=== PATIENT | male | born 1955 | race Caucasian/White ===

== ENCOUNTER 2022-01-12 06:19 | Emergency (ER) | payer MEDICARE, BC | END 2022-01-12 07:10 | disposition home or self-care (01) | LOC: ERS 06:19 | DX: G50.0 Trigeminal neuralgia (principal) | CPT/HCPCS: 99282 ==

== ENCOUNTER 2022-02-17 11:53 | Inpatient (IN) | payer MEDICARE, BC ==
[2022-02-17] MEDS ORDERED: Ketorolac Tromethamine 30 MG/ML VIAL ONE (12:25)
[2022-02-17] MEDS ORDERED: Ondansetron PF 4 MG/2 ML Vial ONE (12:25)
[2022-02-17] MEDS ORDERED: Morphine 4 MG/ML VIAL ONE (12:25)
[2022-02-17 12:44] LABS: #Lymphocytes 0.8 thou/uL (1.20-3.40); #Monocytes 0.4 thou/uL (0.11-0.59); #Neutrophils 6.3 thou/uL (1.40-6.50); %Eosinophils 0.4 % (0.0-10.0); %Lymphocytes 10.2 % (21.0-51.0); %Monocytes 4.9 % (0.0-10.0); %Neutrophils 84.6 % (42.0-75.0); Hemoglobin 12.1 g/dL (14.0-18.0); Mean Corpuscular Hemoglobin 29.7 pg (27.0-31.0); Mean Corpuscular Volume 89.9 fl (78.0-98.0); Mean Platelet Volume 7.2 fL (7.4-10.4); Platelet Count 192 thou/uL (130-400); Red Blood Cell (RBC) Count 4.09 mill/uL (4.70-6.10); White Blood Cell (WBC) Count 7.5 thou/uL (4.8-10.8)
[2022-02-17 13:16] LABS: ALT (SGPT) 26 U/L (8-55); AST (SGOT) 25 U/L (5-34); Albumin 3.9 g/dL (3.4-4.8); Alkaline Phosphatase 56 U/L (40-110); Anion Gap 13 mmol/L (10-20); BUN (Urea Nitrogen) 15 mg/dL (8.4-25.7); Bilirubin, Total 0.3 mg/dL (0.2-1.2); Calc. Creatinine Clearance 0 mL/min (70-130); Carbon Dioxide 21 mmol/L (23-31); Chloride 109 mmol/L (98-107); Estimated GFR 68; Globulin 2.4 g/dL (2.4-3.5); Glucose 116 mg/dL (80-115); Potassium 4.5 mmol/L (3.5-5.1); Protein, Total 6.3 g/dL (5.8-8.1); Sodium 138 mmol/L (136-145)
[2022-02-17] MEDS ORDERED: HYDROmorphone 0.5 MG/0.5 ML SYRINGE ONE ×4 (13:42→19:13)
[2022-02-17] MEDS ORDERED: Iopamidol-370 76% 500 ML 1 ML ONE (13:54)
[2022-02-17] MEDS ORDERED: CEFAZOLIN 1 GM VIAL ONE ×2 (13:59→14:00)
[2022-02-17] MEDS ORDERED: Boostrix 0.5 ML (Tdap) VIAL (>/=7 yrs of age) ONE (14:02)
[2022-02-17] MEDS ORDERED: PROPOFOL 20 ML ONE (14:46)
[2022-02-17] MEDS ORDERED: Ketamine 50 MG/ML (10ML VIAL) ONE (14:46)
[2022-02-17] MEDS ORDERED: Lidocaine 1% MPF 2 ML VIAL ONE (14:47)
[2022-02-17] MEDS ORDERED: Dextrose 50% Abboject 50 ML SYRINGE SLOW IVP PRN (16:24)
[2022-02-17] MEDS ORDERED: Dextrose 5% in Water 1,000 ML IV PRN (16:24)
[2022-02-17] MEDS ORDERED: TETANUS, DIPHTHERIA TOX,ADULT (TDVAX) 0.5 ML VIAL IM ONE (16:24)
[2022-02-17] MEDS ORDERED: hydrALAZINE 20 MG/ML VIAL SLOW IVP PRN (16:24)
[2022-02-17] MEDS ORDERED: Ondansetron PF 4 MG/2 ML Vial IVP PRN (16:24)
[2022-02-17] MEDS ORDERED: diphenhydrAMINE 50 MG/ML VIAL IM PRN (16:27)
[2022-02-17] MEDS ORDERED: Naloxone HCl 0.4 mg/ml Vial IV PRN (16:27)
[2022-02-17] MEDS ORDERED: Promethazine HCl 25 MG/ML VIAL IM PRN (16:27)
[2022-02-17] MEDS ORDERED: diphenhydrAMINE 50 MG/ML VIAL IVP PRN (16:27)
[2022-02-17] MEDS ORDERED: HYDROmorphone 10 mg/100 ml CADD IVPB PRN (16:27)
[2022-02-17] MEDS ORDERED: diphenhydrAMINE 25 MG CAP PO PRN (16:27)
[2022-02-17 16:28] LABS: Magnesium 1.6 mg/dL (1.6-2.6); Phosphorus 2.6 mg/dL (2.3-4.7)
[2022-02-17] MEDS ORDERED: Communication Order-Pharmacy FS SCH (16:30)
[2022-02-17] MEDS ORDERED: Sodium Phosphate 15 MMOL in Sodium Chloride 0.9% 250 ML 250 ML IVPB SCH (18:30)
[2022-02-17] MEDS ORDERED: Magnesium 2 GM/50 ML(in water) 2 GM in Premix Bag 1 BAG IVPB SCH (18:30)
[2022-02-17] MEDS: Acetaminophen 500 MG TAB PO SCH (21:10)
[2022-02-17] MEDS: Famotidine 20 MG TAB PO SCH (21:11)
[2022-02-17] MEDS: Gabapentin 300 MG CAP PO SCH (21:11)
[2022-02-17 21:51] VITALS: BMI 26.4
[2022-02-17] MEDS: Senokot S 8.6-50 MG TAB PO SCH (21:53)
[2022-02-17] MEDS ORDERED: OXcarbazepine 300 MG TAB PO SCH (22:00)
[2022-02-17] MEDS ORDERED: Ibuprofen 200 MG TAB PO SCH (22:00)
[2022-02-17] MEDS: Tacrolimus 1 MG CAP PO SCH (22:25)
[2022-02-17 22:39] LABS: SARS-CoV-2 NAA Rapid Test Not Detected (NotDetected)
[2022-02-18] MEDS: Acetaminophen 500 MG TAB PO SCH ×2 (01:06→07:14)
[2022-02-18 03:54] LABS: #Lymphocytes 1.1 thou/uL (1.20-3.40); #Monocytes 0.5 thou/uL (0.11-0.59); #Neutrophils 4.2 thou/uL (1.40-6.50); %Basophils 0.3 % (0.0-1.0); %Eosinophils 0.4 % (0.0-10.0); %Lymphocytes 17.8 % (21.0-51.0); %Monocytes 9.1 % (0.0-10.0); %Neutrophils 72.4 % (42.0-75.0); Mean Corpuscular HGB CONC 31.4 g/dL (32.0-36.0); Mean Corpuscular Hemoglobin 28.1 pg (27.0-31.0); Mean Corpuscular Volume 89.6 fl (78.0-98.0); Mean Platelet Volume 7.4 fL (7.4-10.4); Platelet Count 176 thou/uL (130-400); Red Blood Cell (RBC) Count 3.91 mill/uL (4.70-6.10); White Blood Cell (WBC) Count 5.9 thou/uL (4.8-10.8)
[2022-02-18 04:08] LABS: Anion Gap 12 mmol/L (10-20); BUN (Urea Nitrogen) 12 mg/dL (8.4-25.7); Calc. Creatinine Clearance 78 mL/min (70-130); Calcium 8.7 mg/dL (7.8-10.44); Carbon Dioxide 21 mmol/L (23-31); Chloride 108 mmol/L (98-107); Estimated GFR 70; Glucose 104 mg/dL (80-115); Magnesium 1.8 mg/dL (1.6-2.6); Phosphorus 3.5 mg/dL (2.3-4.7); Potassium 4.1 mmol/L (3.5-5.1); Sodium 137 mmol/L (136-145)
[2022-02-18] MEDS: Enoxaparin Sodium 40 MG/0.4 ML SYRINGE SC SCH (09:01)
[2022-02-18] MEDS: Magnesium Oxide 250 MG TAB PO SCH (09:03)
[2022-02-18] MEDS: Tacrolimus 1 MG CAP PO SCH (09:04)
[2022-02-18] MEDS: Gabapentin 300 MG CAP PO SCH ×3 (09:04→15:41)
[2022-02-18] MEDS: Rosuvastatin 20 MG TAB PO SCH (09:04)
[2022-02-18] MEDS: Ascorbic Acid 500 mg Chewable Tablet PO SCH (09:05)
[2022-02-18] MEDS: Famotidine 20 MG TAB PO SCH ×2 (09:05→23:59)
[2022-02-18] MEDS: OXcarbazepine 300 MG TAB PO SCH (09:06)
[2022-02-18] MEDS: Senokot S 8.6-50 MG TAB PO SCH (09:06)
[2022-02-18] MEDS: Polyethylene Glycol 3350 17 GM Packet PO SCH (09:06)
[2022-02-18] MEDS ORDERED: Acetaminophen 500 MG TAB PO SCH (13:15)
[2022-02-18] MEDS: traMADol HCl 50 MG TAB PO SCH ×2 (13:28→18:51)
[2022-02-18] MEDS: Acetaminophen/Codeine 30-300mg Tablet PO SCH ×2 (15:38→23:58)
[2022-02-18] MEDS ORDERED: OXcarbazepine 300 MG TAB PO SCH (21:00)
[2022-02-19] MEDS: Senokot S 8.6-50 MG TAB PO SCH ×3 (00:01→20:05)
[2022-02-19] MEDS: Tacrolimus 1 MG CAP PO SCH ×3 (00:02→20:01)
[2022-02-19] MEDS: Terazosin HCl 5 MG CAP PO SCH ×2 (00:02→20:01)
[2022-02-19] MEDS: traMADol HCl 50 MG TAB PO SCH ×4 (00:27→17:15)
[2022-02-19] MEDS: Acetaminophen/Codeine 30-300mg Tablet PO SCH ×4 (02:39→20:09)
[2022-02-19] MEDS: Cyclobenzaprine 10 MG TAB PO PRN ×2 (07:22→17:14)
[2022-02-19] MEDS: Ascorbic Acid 500 mg Chewable Tablet PO SCH (09:00)
[2022-02-19] MEDS: Enoxaparin Sodium 40 MG/0.4 ML SYRINGE SC SCH (09:00)
[2022-02-19] MEDS: Famotidine 20 MG TAB PO SCH ×2 (09:01→20:05)
[2022-02-19] MEDS: Gabapentin 300 MG CAP PO SCH ×4 (09:01→20:05)
[2022-02-19] MEDS: Magnesium Oxide 250 MG TAB PO SCH (09:02)
[2022-02-19] MEDS: OXcarbazepine 300 MG TAB PO SCH ×3 (09:02→20:01)
[2022-02-19] MEDS: Losartan 25 MG TAB PO SCH (09:02)
[2022-02-19] MEDS: Polyethylene Glycol 3350 17 GM Packet PO SCH (09:03)
[2022-02-19] MEDS: Rosuvastatin 20 MG TAB PO SCH (09:03)
[2022-02-19] MEDS: Ibuprofen 200 MG TAB PO SCH ×2 (11:25→17:19)
[2022-02-19] MEDS: Lidocaine 5% Patch TD SCH (11:27)
[2022-02-19] MEDS: cloNIDine 0.1 MG TAB PO SCH ×2 (13:21→20:05)
[2022-02-19] MEDS: Transdermal Patch Removal TOP SCH (22:21)
[2022-02-20] MEDS: traMADol HCl 50 MG TAB PO SCH ×5 (00:06→23:51)
[2022-02-20] MEDS: Ibuprofen 200 MG TAB PO SCH ×3 (01:54→17:19)
[2022-02-20] MEDS: Acetaminophen/Codeine 30-300mg Tablet PO SCH ×4 (01:56→20:53)
[2022-02-20 06:53] LABS: #Eosinphils 0.1 thou/uL (0.0-0.7); #Monocytes 0.6 thou/uL (0.11-0.59); #Neutrophils 3.4 thou/uL (1.40-6.50); %Basophils 0.4 % (0.0-1.0); %Eosinophils 1.5 % (0.0-10.0); %Lymphocytes 19.6 % (21.0-51.0); %Monocytes 11.3 % (0.0-10.0); %Neutrophils 67.2 % (42.0-75.0); Hemoglobin 9.3 g/dL (14.0-18.0); Mean Corpuscular HGB CONC 32.2 g/dL (32.0-36.0); Mean Corpuscular Hemoglobin 28.6 pg (27.0-31.0); Mean Corpuscular Volume 88.8 fl (78.0-98.0); Mean Platelet Volume 7.3 fL (7.4-10.4); Platelet Count 142 thou/uL (130-400); RBC Distribution Width 12.8 % (11.5-14.5); Red Blood Cell (RBC) Count 3.24 mill/uL (4.70-6.10)
[2022-02-20 07:17] LABS: Anion Gap 9 mmol/L (10-20); BUN (Urea Nitrogen) 16 mg/dL (8.4-25.7); Calc. Creatinine Clearance 74 mL/min (70-130); Calcium 8.3 mg/dL (7.8-10.44); Carbon Dioxide 26 mmol/L (23-31); Chloride 99 mmol/L (98-107); Estimated GFR 67; Glucose 102 mg/dL (80-115); Magnesium 1.6 mg/dL (1.6-2.6); Phosphorus 3.5 mg/dL (2.3-4.7); Potassium 4.1 mmol/L (3.5-5.1); Sodium 130 mmol/L (136-145)
[2022-02-20] MEDS: OXcarbazepine 300 MG TAB PO SCH ×2 (07:57→22:45)
[2022-02-20] MEDS: Magnesium Oxide 250 MG TAB PO SCH (07:57)
[2022-02-20] MEDS: Tacrolimus 1 MG CAP PO SCH ×2 (07:58→22:46)
[2022-02-20] MEDS: Losartan 25 MG TAB PO SCH (07:58)
[2022-02-20] MEDS: Rosuvastatin 20 MG TAB PO SCH (07:59)
[2022-02-20] MEDS: Terazosin HCl 5 MG CAP PO SCH (07:59)
[2022-02-20] MEDS ORDERED: Magnesium 2 GM/50 ML(in water) 2 GM in Premix Bag 1 BAG IVPB SCH (08:00)
[2022-02-20] MEDS: Famotidine 20 MG TAB PO SCH ×2 (08:00→20:53)
[2022-02-20] MEDS: Enoxaparin Sodium 40 MG/0.4 ML SYRINGE SC SCH (08:01)
[2022-02-20] MEDS: cloNIDine 0.1 MG TAB PO SCH ×3 (08:01→20:55)
[2022-02-20] MEDS: Gabapentin 300 MG CAP PO SCH ×3 (08:02→20:53)
[2022-02-20] MEDS: Polyethylene Glycol 3350 17 GM Packet PO SCH (08:02)
[2022-02-20] MEDS: Ascorbic Acid 500 mg Chewable Tablet PO SCH (08:02)
[2022-02-20] MEDS: Senokot S 8.6-50 MG TAB PO SCH ×2 (08:02→20:53)
[2022-02-20] MEDS: Lidocaine 5% Patch TD SCH (09:10)
[2022-02-20] MEDS: Transdermal Patch Removal TOP SCH (22:00)
[2022-02-21] MEDS: Ibuprofen 200 MG TAB PO SCH ×3 (00:48→18:22)
[2022-02-21] MEDS: Acetaminophen/Codeine 30-300mg Tablet PO SCH ×4 (02:30→22:01)
[2022-02-21] MEDS: traMADol HCl 50 MG TAB PO SCH ×3 (05:49→18:21)
[2022-02-21 05:58] LABS: #Eosinphils 0.1 thou/uL (0.0-0.7); #Monocytes 0.6 thou/uL (0.11-0.59); #Neutrophils 4.5 thou/uL (1.40-6.50); %Basophils 0.3 % (0.0-1.0); %Eosinophils 1.9 % (0.0-10.0); %Lymphocytes 15.5 % (21.0-51.0); %Monocytes 9.7 % (0.0-10.0); %Neutrophils 72.7 % (42.0-75.0); Mean Corpuscular HGB CONC 32.8 g/dL (32.0-36.0); Mean Corpuscular Hemoglobin 28.6 pg (27.0-31.0); Mean Corpuscular Volume 87.3 fl (78.0-98.0); Mean Platelet Volume 7.3 fL (7.4-10.4); Platelet Count 160 thou/uL (130-400); RBC Distribution Width 12.5 % (11.5-14.5); White Blood Cell (WBC) Count 6.2 thou/uL (4.8-10.8)
[2022-02-21] MEDS: OXcarbazepine 300 MG TAB PO SCH ×2 (10:08→22:03)
[2022-02-21] MEDS: Rosuvastatin 20 MG TAB PO SCH (10:09)
[2022-02-21] MEDS: Tacrolimus 1 MG CAP PO SCH ×2 (10:09→22:03)
[2022-02-21] MEDS: Losartan 25 MG TAB PO SCH (10:09)
[2022-02-21] MEDS: Magnesium Oxide 250 MG TAB PO SCH (10:09)
[2022-02-21] MEDS: Ascorbic Acid 500 mg Chewable Tablet PO SCH (10:10)
[2022-02-21] MEDS: Enoxaparin Sodium 40 MG/0.4 ML SYRINGE SC SCH (10:10)
[2022-02-21] MEDS: Polyethylene Glycol 3350 17 GM Packet PO SCH (10:10)
[2022-02-21] MEDS: Famotidine 20 MG TAB PO SCH ×2 (10:10→22:02)
[2022-02-21] MEDS: Lidocaine 5% Patch TD SCH (10:10)
[2022-02-21] MEDS: Senokot S 8.6-50 MG TAB PO SCH ×2 (10:11→22:01)
[2022-02-21] MEDS: cloNIDine 0.1 MG TAB PO SCH ×3 (10:11→22:02)
[2022-02-21] MEDS: Gabapentin 300 MG CAP PO SCH ×3 (10:12→22:02)
[2022-02-21] MEDS: Terazosin HCl 5 MG CAP PO SCH (22:03)
[2022-02-21] MEDS: Transdermal Patch Removal TOP SCH (22:03)
[2022-02-22] MEDS: traMADol HCl 50 MG TAB PO SCH ×2 (00:58→05:46)
[2022-02-22] MEDS: Ibuprofen 200 MG TAB PO SCH (00:59)
[2022-02-22] MEDS: Acetaminophen/Codeine 30-300mg Tablet PO SCH ×3 (02:29→08:41)
[2022-02-22 07:38] VITALS: BP 118/65; TEMP 97.6
[2022-02-22] MEDS ORDERED: Ibuprofen 200 MG TAB PO PRN (07:57)
[2022-02-22] MEDS: Polyethylene Glycol 3350 17 GM Packet PO SCH (08:40)
[2022-02-22] MEDS: Senokot S 8.6-50 MG TAB PO SCH (08:40)
[2022-02-22] MEDS: Famotidine 20 MG TAB PO SCH (08:40)
[2022-02-22] MEDS: Enoxaparin Sodium 40 MG/0.4 ML SYRINGE SC SCH (08:40)
[2022-02-22] MEDS: cloNIDine 0.1 MG TAB PO SCH (08:40)
[2022-02-22] MEDS: Gabapentin 300 MG CAP PO SCH (08:41)
[2022-02-22] MEDS: Magnesium Oxide 250 MG TAB PO SCH (08:42)
[2022-02-22] MEDS: Ascorbic Acid 500 mg Chewable Tablet PO SCH (08:42)
[2022-02-22] MEDS: OXcarbazepine 300 MG TAB PO SCH (08:42)
[2022-02-22] MEDS: Losartan 25 MG TAB PO SCH (08:42)
[2022-02-22] MEDS: Tacrolimus 1 MG CAP PO SCH (08:43)
[2022-02-22] MEDS: Lidocaine 5% Patch TD SCH (08:43)
[2022-02-22] MEDS: Rosuvastatin 20 MG TAB PO SCH (08:43)
== END 2022-02-22 11:24 | disposition home or self-care (01) | DRG 200 ==
LOC: ERS 11:53 → IMCU/EMU 16:28 → SURG A 02-19 20:27
PROVIDERS: ADMIT Surgery; ATTEND Surgery
PROC: 0W9B30Z Drainage of Left Pleural Cavity with Drainage Device, Percutaneous Approach (ICD-10-PCS; principal; 2022-02-17)
DX: S27.2XXA Traumatic hemopneumothorax, initial encounter (principal); J90 Pleural effusion, not elsewhere classified; S22.42XA Multiple fractures of ribs, left side, initial encounter for closed fracture; Z94.4 Liver transplant status; J98.11 Atelectasis; F41.9 Anxiety disorder, unspecified; G89.29 Other chronic pain; E11.9 Type 2 diabetes mellitus without complications; I10 Essential (primary) hypertension; W11.XXXA Fall on and from ladder, initial encounter; Z20.822 Contact with and (suspected) exposure to COVID-19; Z88.5 Allergy status to narcotic agent; Z79.899 Other long term (current) drug therapy; Y92.009 Unspecified place in unspecified non-institutional (private) residence as the place of occurrence of the external cause
CPT/HCPCS: 36415; 36416; 70450; 71045; 71046; 72125; 74177; 80048; 80053; 83735; 84100; 84484; 85025; 86850; 86900; 86901; 90715; 93005; 94640; G0390; J0690; J1170; J1650; J1885; J2270; J2405; J2550; J2704; J3475; J7050; J7507; J7620; Q9967; U0002

== ENCOUNTER 2022-03-28 10:09 | Outpatient (CLI) | payer MEDICARE, BC | END 2022-03-28 10:10 | disposition home or self-care (01) | LOC: RAD 10:09 | PROVIDERS: ATTEND Family Medicine | DX: S22.42XA Multiple fractures of ribs, left side, initial encounter for closed fracture (principal); R05.2 Subacute cough ==

== ENCOUNTER 2025-01-14 11:27 | Outpatient (CLI) | payer MEDICARE | END 2025-01-14 11:28 | disposition home or self-care (01) | LOC: SCSRAD 11:27 | PROVIDERS: ATTEND Family Medicine | DX: R07.81 Pleurodynia (principal) ==